=== PATIENT | male | born 1935 | race Caucasian/White ===

== ENCOUNTER → 2018-04-24 | Outpatient (CLI) | payer MEDICARE ==
[~2018-04-24] MED LIST: ACID1TAB PO; ACID1TAB7 PO; ALEVE PO; ASCO500C2 PO; CANA300T PO; CHOL500045 PO; CHRO200C PO; DICL100G25 TP; GLIP-142 PO; GLUCOSAMINE 1,1 EACH PO; LEVO100T5 PO; LEVO750T26 PO; LISI-167 PO; LISI1TAB5 PO; LISI2.5T PO; LUTE20TA PO; MAGN400T26 PO; MULT-516 PO; OMEG-14 PO; PRED10TA PO; ROSU10TA PO; SITA1TAB5 PO; TRAM50TA2 PO; VITAMIN E PO; [UNRECOGNIZED DRUG - REMARK]
[2018-04-24 11:59] LABS: INTERNATIONAL NORMALIZED RATIO 0.98 (0.93-1.1); PROTHROMBIN TIME 10.1 Seconds (9.6-11.5)
[2018-04-24 12:01] LABS: BASOPHILS # (AUTO) 0.05 x10^3/uL (0-0.1); BASOPHILS % (AUTO) 0 % (0-1); EOSINOPHILS # (AUTO) 0.08 x10^3/uL (0-0.4); EOSINOPHILS % (AUTO) 1 % (1-7); LYMPHOCYTES # (AUTO) 1.88 x10^3/uL (1-3.4); LYMPHOCYTES % (AUTO) 17 % (22-44); MD NO; MEAN CORPUSCULAR HEMOGLOBIN 26.8 pg (27.5-34.5); MEAN CORPUSCULAR HGB CONC 32.6 g/dL (33.2-36.2); MEAN CORPUSCULAR VOLUME 82.4 fL (81-97); MEAN PLATELET VOLUME 8.2 fL (7.4-10.4); MONOCYTES # (AUTO) 0.87 x10^3/uL (0.2-0.8); MONOCYTES % (AUTO) 8 % (2-9); NEUTROPHILS # (AUTO) 8.08 x10^3/uL (1.8-6.8); NEUTROPHILS % (AUTO) 74 % (42-75); PLATELET COUNT 299 x10^3/uL (130-400); RED BLOOD COUNT 5.89 x10^6/uL (4.38-5.82); RED CELL DISTRIBUTION WIDTH 20.7 % (9.4-14.8)
[2018-04-24 12:02] LABS: ALBUMIN 3.6 g/dL (3.4-5.0); ANION GAP 13 mmol/L (5-15); CALCIUM 9.4 mg/dL (8.5-10.1); CHLORIDE 109 mmol/L (98-107)
[2018-04-24 12:05] LABS: ALANINE AMINOTRANSFERASE 28 U/L (12-78); ALKALINE PHOSPHATASE 68 U/L (45-117); BILIRUBIN,TOTAL 0.7 mg/dL (0.2-1.0); CREATININE 1.31 mg/dL (0.7-1.3); TOTAL PROTEIN 7.5 g/dL (6.4-8.2)
[2018-04-24 12:33] LABS: MICROSCOPIC NOT IND
[2018-04-24 12:43] LABS: CULTURE INDICATED? NO
== END | disposition home or self-care (01) ==
LOC: STAR 10:35
PROVIDERS: ATTEND Neurological Surgery
DX: Z01.818 Encounter for other preprocedural examination (principal); M51.36 Other intervertebral disc degeneration, lumbar region
CPT/HCPCS: 36415; 71046; 80053; 81003; 85025; 85610; 85730; 93005

== ENCOUNTER 2018-05-03 06:56 | Day surgery (SDC) | payer MEDICARE ==
[~2018-05-03] VITALS: Ht 180.3 cm; Wt 83.7 kg
[2018-05-03 08:04] VITALS: BP 110/74
[2018-05-03] MEDS ORDERED: BACITRACIN 50,000 UNIT ONE (08:06)
[2018-05-03] MEDS ORDERED: BUPIVACAINE/PF 0.5% ONE (08:06)
[2018-05-03] MEDS ORDERED: THROMBIN 5,000 UNIT VIAL TP ONE (08:06)
[2018-05-03] MEDS ORDERED: EPINEPHRINE 1 MG/ML, 1ML ONE (08:06)
[2018-05-03] MEDS ORDERED: BUPIVACAINE 0.25% ONE (08:06)
[2018-05-03] MEDS ORDERED: LACTATED RINGERS 1,000 ML IV SCH (08:08)
[2018-05-03] MEDS ORDERED: FENTANYL PF 250 MCG/5ML ONE (12:10)
[2018-05-03] MEDS ORDERED: FENTANYL PF 100 MCG/2ML ONE (13:10)
[2018-05-03] MEDS ORDERED: hydrALAzine 20 MG/ML, 1ML IV PRN (14:00)
[2018-05-03] MEDS ORDERED: PROMETHAZINE 25 MG/ML, 1ML IV PRN (14:00)
[2018-05-03] MEDS ORDERED: OXYcodone 5 MG/5 ML ORAL.SOL UDC PO PRN (14:00)
[2018-05-03] MEDS ORDERED: HYDROmorphone 1 MG/ML, 1ML IV PRN (14:00)
[2018-05-03] MEDS ORDERED: FENTANYL PF 100 MCG/2ML IV PRN (14:00)
[2018-05-03] MEDS ORDERED: LABETALOL 5MG/ML, 20ML IV PRN (14:00)
[2018-05-03] MEDS ORDERED: ALBUTEROL SULFATE 2.5 MG/3 ML NPPB PRN (14:00)
[2018-05-03] MEDS ORDERED: ACETAMINOPHEN 650 MG/20.3 ML UDC ONE (14:32)
[2018-05-03] MEDS ORDERED: OXYcodone 5 MG/5 ML ORAL.SOL UDC ONE (14:32)
[2018-05-03] MEDS ORDERED: ACETAMINOPHEN 650 MG/20.3 ML UDC PO PRN (15:00)
[2018-05-03] MEDS ORDERED: DEXAMETHASONE 4 MG/ML, 1ML ONE (15:28)
[2018-05-03] MEDS ORDERED: CEFAZOLIN 1,000 MG ONE (15:28)
[2018-05-03] MEDS ORDERED: ONDANSETRON 2MG/ML, 2ML ONE (15:28)
[2018-05-03] MEDS ORDERED: PROPOFOL 10 MG/ML, 20ML ONE (15:28)
[2018-05-03] MEDS ORDERED: SUCCINYLCHOLINE 20 MG/ML, 10ML ONE (15:28)
[2018-05-03] MEDS ORDERED: EPHEDRINE 50 MG/ML, 1ML ONE (15:28)
== END 2018-05-03 16:20 ==
LOC: OUT 06:56
PROVIDERS: ATTEND Neurological Surgery
DX: M51.16 Intervertebral disc disorders with radiculopathy, lumbar region (principal); M48.061 Spinal stenosis, lumbar region without neurogenic claudication; E78.5 Hyperlipidemia, unspecified; I10 Essential (primary) hypertension; E11.9 Type 2 diabetes mellitus without complications
CPT/HCPCS: 63042; 63044; 72100; 82962; J0171; J0330; J0690; J1100; J2405; J2704; J3010; J3490; J7120

== ENCOUNTER → 2018-06-13 | Outpatient (CLI) | payer MEDICARE ==
[~2018-06-13] MED LIST changes: -CHRO200C PO; +CHRO200C2 PO
== END | disposition home or self-care (01) ==
LOC: CVU 09:35
PROVIDERS: ATTEND Internal Medicine Cardiovascular Disease
DX: I65.23 Occlusion and stenosis of bilateral carotid arteries (principal); I35.8 Other nonrheumatic aortic valve disorders; I10 Essential (primary) hypertension; E78.2 Mixed hyperlipidemia; E11.9 Type 2 diabetes mellitus without complications; Z87.891 Personal history of nicotine dependence
CPT/HCPCS: 93306; 93880

== ENCOUNTER → 2021-01-20 | Outpatient (CLI) | payer MEDICARE ==
[~2021-01-20] MED LIST changes: -CHRO200C2 PO; +CHROMIUM PICO200 MCG PO; +LISI1TAB39 PO; -LISI1TAB5 PO; +REGADENOSON 0.4 MG/5 ML SYRINGE ONE; -ROSU10TA PO; +ROSU10TA2 PO
== END | disposition home or self-care (01) ==
LOC: CFH 12:52
PROVIDERS: ATTEND Internal Medicine Cardiovascular Disease
DX: I10 Essential (primary) hypertension (principal); E78.2 Mixed hyperlipidemia; E11.9 Type 2 diabetes mellitus without complications
CPT/HCPCS: 78452; 93017; A9502; J2785